=== PATIENT | male | born 1960 | race Caucasian/White ===

== ENCOUNTER 2024-09-27 15:55 | Outpatient (RCR) | payer BC, SELFPAY | END 2024-09-27 23:59 | disposition home or self-care (01) | LOC: RPT 15:55 | PROVIDERS: ATTENDING PHYSICIAN Orthopaedic Surgery; FAMILY PHYSICIAN Family Medicine | DX: Z47.1 Aftercare following joint replacement surgery (principal); Z96.651 Presence of right artificial knee joint; M17.11 Unilateral primary osteoarthritis, right knee; Z73.6 Limitation of activities due to disability | CPT/HCPCS: 97010; 97110; 97112; 97163; 97530 ==

== ENCOUNTER 2024-09-28 16:48 | Emergency (ER) | payer BC, SELFPAY ==
[2024-09-28 16:57] VITALS: BP 146/85
[2024-09-28 17:38] LABS: ALT (SGPT) 37 U/L (0-50); AST (SGOT) 24 U/L (17-59); Albumin 4.6 g/dl (3.5-5.0); Alkaline Phosphatase 52 U/L (38-126); Blood Urea Nitrogen 23 mg/dl (9-20); Calcium 9.6 mg/dl (8.4-10.2); Carbon Dioxide 21 mmol/L (22-30); Chloride 100 mmol/L (98-107); Glucose 124 mg/dl (70-99); Potassium 4.6 mmol/L (3.5-5.1); Sodium 137 mmol/L (135-145); Total Bilirubin 0.4 mg/dl (0.2-1.3); eGFR > 60.00
[2024-09-28 17:59] LABS: % Basophils 0.5 % (0-2); % Eosinophils 4.2 % (0-6); % Immature Granulocytes 0.2 % (0-0.5); % Monocytes 4.1 % (1.7-9.3); Absolute Basophils 0.1 10^3/uL (0-0.2); Absolute Eosinophils 0.7 10^3/uL (0-0.7); Absolute Lymphocytes 10.5 10^3/uL (1.2-3.4); Absolute Monocytes 0.7 10^3/uL (0.1-0.6); Absolute Neutrophils 3.8 10^3/uL (1.4-6.5); Hematocrit 39.1 % (39.0-52.0); Hemoglobin 12.7 g/dL (13.0-18.0); Mean Corp Hgb Conc. 32.5 g/dL (33.0-37.0); Mean Corpuscular Hgb 28.5 pg (27.0-31.0); Mean Corpuscular Volume 87.7 fL (80.0-94.0); Nucleated Red Blood Cells % 0.4 % (-); Platelet Count 188 10^3/uL (130-400); Red Blood Cell Count 4.46 10^6/uL (4.70-6.10); Red Cell Dist. Width 13.4 % (11.5-14.5); White Blood Cell Count 15.7 10^3/uL (4.8-10.8)
[2024-09-28 18:18] VITALS: BMI 26.3
[2024-09-28 18:19] VITALS: BP 129/80
[2024-09-28 20:22] VITALS: BP 128/87
[2024-09-28 20:35] LABS: Erythrocyte Sed Rate 19 mm/hour (0-20)
[2024-09-28 20:37] LABS: COVID-19 Antigen Negative (Negative)
[2024-09-28 20:38] LABS: Lactic Acid 0.8 mmol/L (0.7-2.0)
[2024-09-28 20:52] LABS: C-Reactive Protein < 5.00 mg/L (0.0-10.00)
[2024-09-28 21:49] LABS: Urine Albumin Negative (Neg - Trace); Urine Bilirubin Negative (Negative); Urine Character Clear (Clear); Urine Color Yellow; Urine Glucose Negative (Negative); Urine Ketone Negative (Negative); Urine Leukocyte Negative (Negative); Urine Nitrite Negative (Negative); Urine Occult Blood Trace (Negative); Urine Specific Gravity 1.025 (<1.030); Urine Urobilinogen Negative (Neg - 1+)
[2024-09-28 21:54] LABS: Urine Squamous Cell 0-2 /LPF (Few)
[2024-09-28 21:55] LABS: Urine Mucus Few
[2024-09-28 21:57] LABS: Urine Bacteria Few (Negative); Urine Calcium Oxalate Crystals Present; Urine White Cell 0-2 /HPF (0-5)
--- NOTE | 2024-09-29 00:03 | ED.GENMED ---
History of Present Illness
General
Chief Complaint: Fever
Source: patient
Exam Limitations: none
Time Seen by Provider: 09/28/24 19:20
Nursing documentation reviewed up to this point in time: agreed with
History of Present Illness
History of Present Illness:
Patient to ED wt complaint of intermittent fevers. States he had RTKR approx 3 weeks ago. Surgery was delayed for 5 days to due fevers. Since surgery he continues with intermittent fevers. No other complaint. Brougyht to ED by spouse for
eval. PMH CLL
Past History
Past History
ED Past Medical History: Hypercholesterolemia and Other (CLL)
ED Past Surgical History: None
Social History
Tobacco: Non-smoker
Alcohol: Occasional
Personal:
Living: with family
Employment: Employed
Review of Systems
Review of Systems
Allergies reviewed?: Yes
All Other Systems: ROS reviewed and negative except as documented in HPI and ROS
Constitutional: Reports fever (intermittent)
EENT: Reports no symptoms
Respiratory: Reports no symptoms
Cardiac: Reports no symptoms
ABD/GI: Reports no symptoms
: Reports no symptoms
Musculoskeletal: Reports no symptoms
Skin: Reports no symptoms
Neurological: Reports no symptoms
Psychiatric: Reports no symptoms
Phy Exam
General Physical Exam
General Presentation: well appearing and no apparent distress
General age: appears stated age
General Skin: warm and dry
General Habitus: normal
General Mental: alert
General Hydration: appears well hydrated
ENT Exam
ENT Exam: pharynx normal, neck supple, normocephalic and swallowing well
Cardiovascular Exam
Cardiovascular Exam: regular rate/rhythm and no edema
Pulmonary Exam
Pulmonary Exam: lungs clear and no respiratory distress
Gastrointestinal Exam
Gastrointestinal Exam: non tender and soft
Musculoskeletal Exam
Musculoskeletal Exam: full ROM and neuro vasc intact
Skin Exam
Skin Exam: normal color, warm/dry, no rash and other (incision right ant knee with all skin edges together. No redness, swelling discharge)
Psychiatric Exam
Psychiatric Exam: normal mood/affect
Course
Orders/Labs/Results
Orders:
Orders
09/28/24 17:13
C-Reactive Protein Urgent
Comment: ADD ON
CMP [Comprehensive Metabolic Panel] Urgent
Complete Blood Count/With Diff Urgent
Erythrocyte Sed Rate Urgent
Comment: ADD ON
09/28/24 20:08
Add On- LAB Urgent
Tests Added?: Sed Rate, CRP
09/28/24 20:16
COVID-19 Antigen Urgent
Source: Nasal Swab
Lactic Acid Urgent
Blood Culture Urgent
FARHAT Source: Blood/Venous
Specimen Description:
Influenza A+B Rapid Molecular Urgent
FARHAT Source: Nasal Swab
Specimen Description:
09/28/24 21:03
CR Chest - 2 Views Urgent
Comment:
Reason For Exam: fever
09/28/24 21:41
Urinalysis Reflex To Culture Urgent
Date Specimen was Collected: 09/28/24
Time Specimen was Collected: 21:40
Urine Microscopic Reflex Cult Urgent
Abnormal Lab Results
09/28/24 09/28/24
17:13 21:41
WBC 15.7 H 10^3/uL
(4.8-10.8)
RBC 4.46 L 10^6/uL
(4.70-6.10)
Hgb 12.7 L g/dL
(13.0-18.0)
MCHC 32.5 L g/dL
(33.0-37.0)
Absolute Lymphs (auto) 10.5 H 10^3/uL
(1.2-3.4)
Absolute Monos (auto) 0.7 H 10^3/uL
(0.1-0.6)
Neutrophils % 24.0 L %
(42.2-75.2)
Lymphocytes % 67.0 H %
(20.5-51.1)
Carbon Dioxide 21 L mmol/L
(22-30)
BUN 23 H mg/dl
(9-20)
Glucose 124 H mg/dl
(70-99)
Ur Occult Blood Reflex Trace A
(Negative)
Urine RBC 3-6 A /HPF
(0-2)
Urine Bacteria (Reflex) Few A
(Negative)
09/28/24 17:13
09/28/24 17:13
Vital Signs
Initial and Last Documented VS:
Initial Vital Signs
Temp Pulse Resp BP Pulse Ox
100.3 F 125 16 146/85 95
09/28/24 16:57 09/28/24 16:57 09/28/24 16:57 09/28/24 16:57 09/28/24 16:57
Last Documented Vital Signs
Temp Pulse Resp BP Pulse Ox
99.0 F 89 18 128/87 96
09/28/24 20:34 09/28/24 20:22 09/28/24 20:22 09/28/24 20:22 09/28/24 20:22
MDM/Problems Addressed
Differential Diagnosis Includes:
Patient to ED with complaint of intermittent fevers for the past month. Reports presence of fever delayed RTKR by 5 days. He continues with these fevers. Labs reviewed. Hx of CLL. WBC 15 noted but consistent for him. CXR NAD, UA no evidence of
UTI. Exam without concerning findings. WIll discharge home, close follow up with PCP and hematology. Blood culture results pending
*Critical Care Note
Total Time (30-74mins, 75-104mins- exclusive of procedures): Not Applicable
ED Attending Note
-
Portions of this chart may have been created with voice recognition software.� Occasional wrong word or��sound alike� substitutions may have occurred due to the inherent limitations of voice recognition software.
Discharge Plan
Departure
Patient Disposition: Home (Routine Discharge)
Date of Disposition: 09/28/24
Time of Disposition: 22:05
Patient with high blood pressure during this ER visit?: No
Condition: Good
Covid-19: Not Applicable
Discharge Problem:
Fever, unknown origin
Instructions: Fever, Adult (DC)
Prescriptions:
No Action
ciprofloxacin HCl 500 MG tablet
500 mg PO BID Qty: 19 0RF
Referrals:
Moustapha Balbuena MD [Family Provider] - Follow up in 2-3 days
Activity Restrictions/Additional Instructions:
Return to the emergency department immediately for any changes in/worsening of your symptoms.
Interventions
Interventions:
*Risk Screen - Suicide Last Done: 09/28/24 16:57
*General Assessment Last Done: 09/28/24 16:57
*Neglect/Abuse Screening Last Done: 09/28/24 16:57
*ED COVID-19 Vaccine History Last Done: 09/28/24 16:57
*Nursing Disposition Last Done: 09/28/24 22:24
ED- Neurological Assessment Last Done: 09/28/24 18:22
ED-Skin Assessment Last Done: 09/28/24 18:22
Discharge Date and Time
Discharge Date/Time: 09/28/24 22:25
Print Language: CROATIAN
== END 2024-09-28 22:25 | disposition home or self-care (01) ==
LOC: EMR 16:48
PROVIDERS: Emergency Medicine; Nurse Practitioner; EMERGENCY PHYSICIAN Emergency Medicine; FAMILY PHYSICIAN Family Medicine
DX: R50.9 Fever, unspecified (principal); E78.00 Pure hypercholesterolemia, unspecified
CPT/HCPCS: 99283; 71046; 80053; 81003; 81015; 83605; 85025; 85652; 86140; 87040; 87502; 87811

== ENCOUNTER → 2024-10-13 14:56 | Outpatient (REF) | payer BC, SELFPAY | LOC: HWRAD 14:56 | PROVIDERS: ATTENDING PHYSICIAN Internal Medicine Hematology & Oncology; FAMILY PHYSICIAN Family Medicine | DX: C91.10 Chronic lymphocytic leukemia of B-cell type not having achieved remission (principal); R16.1 Splenomegaly, not elsewhere classified | CPT/HCPCS: 71260; 74177; Q9967 ==

== ENCOUNTER 2024-10-22 10:03 | Outpatient (RCR) | payer BC, SELFPAY | END 2024-10-22 13:46 | disposition home or self-care (01) | LOC: RPT 10:03 | PROVIDERS: ATTENDING PHYSICIAN Orthopaedic Surgery; FAMILY PHYSICIAN Family Medicine | DX: Z47.1 Aftercare following joint replacement surgery (principal); M17.11 Unilateral primary osteoarthritis, right knee; R26.89 Other abnormalities of gait and mobility; Z73.6 Limitation of activities due to disability; Z96.651 Presence of right artificial knee joint | CPT/HCPCS: 97110; 97530 ==

== ENCOUNTER → 2024-11-05 09:15 | Outpatient (REF) | payer BC, SELFPAY ==
[2024-11-05 09:44] VITALS: BP 154/94; BP_SYST 88
[2024-11-05 10:01] LABS: INR 0.96; PT 13.1 Sec (11.4-14.6)
[2024-11-05 10:07] LABS: Hematocrit 43.9 % (39.0-52.0); Hemoglobin 13.6 g/dL (13.0-18.0); Mean Corpuscular Hgb 28.1 pg (27.0-31.0); Mean Corpuscular Volume 90.7 fL (80.0-94.0); Mean Platelet Volume 9.9 fL (7.4-10.4); Platelet Count 158 10^3/uL (130-400); Red Blood Cell Count 4.84 10^6/uL (4.70-6.10)
[2024-11-05] MEDS: TYLENOL 650 MG PO (10:30)
[2024-11-05] MEDS: ATIVAN 0.5 MG IV (10:33)
[2024-11-05] MEDS: NSS (PRESERVATIVE FREE) 0.25 ML IV (10:40)
[2024-11-05 11:15] VITALS: BP 160/95; BP_SYST 95
[2024-11-05 11:20] VITALS: BP 115/89; BP_SYST 68
[2024-11-05 12:27] LABS: % Basophils 0.4 % (0-2); % Eosinophils 1.5 % (0-6); % Immature Granulocytes 0.2 % (0-0.5); % Lymphocytes 63.4 % (20.5-51.1); % Monocytes 5.3 % (1.7-9.3); % Neutrophils 29.2 % (42.2-75.2); Absolute Basophils 0.1 10^3/uL (0-0.2); Absolute Eosinophils 0.2 10^3/uL (0-0.7); Absolute Lymphocytes 7.6 10^3/uL (1.2-3.4); Absolute Monocytes 0.6 10^3/uL (0.1-0.6); Absolute Neutrophils 3.5 10^3/uL (1.4-6.5); Nucleated Red Blood Cells % 0 % (-)
== END ==
LOC: RADI 09:15
PROVIDERS: ATTENDING PHYSICIAN Internal Medicine Hematology & Oncology; FAMILY PHYSICIAN Family Medicine; REFERRING PHYSICIAN Physician Assistant
DX: C91.10 Chronic lymphocytic leukemia of B-cell type not having achieved remission (principal)
CPT/HCPCS: 88305; 88311; 88312; 36415; 38222; 77012; 85025; 85610; 88313

== ENCOUNTER → 2024-11-11 13:09 | Outpatient (REF) | payer BC, SELFPAY | LOC: REG 13:09 | PROVIDERS: ATTENDING PHYSICIAN Student in an Organized Health Care Education/Training Program | DX: R50.9 Fever, unspecified (principal) | CPT/HCPCS: 36415; 87015; 87207 ==

== ENCOUNTER → 2024-11-19 07:09 | Day surgery (SDC) | payer BC, SELFPAY | LOC: CATH 07:09 | PROVIDERS: ATTENDING PHYSICIAN Internal Medicine Cardiovascular Disease; FAMILY PHYSICIAN Family Medicine; OTHER PHYSICIAN Internal Medicine Cardiovascular Disease | DX: R50.9 Fever, unspecified (principal); R00.0 Tachycardia, unspecified; I08.0 Rheumatic disorders of both mitral and aortic valves; I08.8 Other rheumatic multiple valve diseases | CPT/HCPCS: 93312; 93320; 93325; 93005 ==

== ENCOUNTER → 2024-12-08 14:35 | Outpatient (REF) | payer BC, SELFPAY ==
[2024-12-08 16:06] LABS: Blood Urea Nitrogen 23 mg/dl (9-20); Calcium 9.6 mg/dl (8.4-10.2); Carbon Dioxide 32 mmol/L (22-30); Chloride 100 mmol/L (98-107); Glucose 101 mg/dl (70-99); Potassium 4.4 mmol/L (3.5-5.1); Sodium 139 mmol/L (135-145); eGFR > 60.00
[2024-12-08 16:07] LABS: Erythrocyte Sed Rate 14 mm/hour (0-20)
== END ==
LOC: REG 14:35
PROVIDERS: ATTENDING PHYSICIAN Internal Medicine Hematology & Oncology
DX: C91.10 Chronic lymphocytic leukemia of B-cell type not having achieved remission (principal); R16.1 Splenomegaly, not elsewhere classified
CPT/HCPCS: 36415; 80048; 85652

== ENCOUNTER → 2024-12-10 11:20 | Outpatient (REF) | payer BC, SELFPAY ==
[2024-12-10 13:04] LABS: ALT (SGPT) 25 U/L (0-50); AST (SGOT) 25 U/L (17-59); Albumin 4.6 g/dl (3.5-5.0); Alkaline Phosphatase 68 U/L (38-126); Blood Urea Nitrogen 21 mg/dl (9-20); Calcium 9.4 mg/dl (8.4-10.2); Carbon Dioxide 29 mmol/L (22-30); Chloride 102 mmol/L (98-107); Creatine Phosphokinase 56 U/L (55-170); Glucose 86 mg/dl (70-99); Potassium 4.5 mmol/L (3.5-5.1); Sodium 140 mmol/L (135-145); Total Bilirubin 0.4 mg/dl (0.2-1.3); Total Protein 7.1 g/dl (6.3-8.2); eGFR > 60.00
[2024-12-10 13:37] LABS: Hepatitis B Core Ab, Total Negative (Negative); Hepatitis B Surface Antibody Negative; Hepatitis C Antibody Negative (Negative)
[2024-12-10 13:44] LABS: Urine Albumin Trace (Neg - Trace); Urine Bilirubin Negative (Negative); Urine Character Clear (Clear); Urine Color Yellow; Urine Glucose Negative (Negative); Urine Ketone Negative (Negative); Urine Leukocyte Negative (Negative); Urine Nitrite Negative (Negative); Urine Occult Blood Negative (Negative); Urine Urobilinogen Negative (Neg - 1+)
[2024-12-10 14:35] LABS: Urine Protein < 5 mg/dl
[2024-12-11 10:20] LABS: Intact PTH 33.9 pg/ml (13.6-85.8)
[2024-12-11 20:53] LABS: EBV-EA (D) Ab IgG <5.0 U/mL (0.0-10.9); EBV-VCA IgM Antibodies <10.0 U/mL (0.0-43.9)
[2024-12-11 23:33] LABS: Myeloperoxidase Antibody 0 AU/mL (0-19); Serine Protease-3, IgG 0 AU/mL (0-19)
[2024-12-12 07:50] LABS: Cardiolipin IgA Antibody <10 APL (<=11); Cardiolipin IgM Antibody <10 MPL (<=12); Cardiolipin Igg Antibody <10 GPL (<=14)
[2024-12-13 02:56] LABS: Beta-2-Glycoprotein I Ab. IgG <10 SGU (<=20); Beta-2-Glycoprotein I Ab. IgM <10 SMU (<=20)
[2024-12-13 05:08] LABS: Complement C3 138 mg/dl (88-165)
[2024-12-13 09:15] LABS: Parvo B19 Ab, IgM 0.11 IV (<=0.89); Parvo Virus B19 Ab, IgG 1.16 IV (<=0.90)
== END ==
LOC: REG 11:20
PROVIDERS: ATTENDING PHYSICIAN Student in an Organized Health Care Education/Training Program
DX: R50.9 Fever, unspecified (principal); R51.9 Headache, unspecified
CPT/HCPCS: 36415; 80053; 81003; 82232; 82550; 82570; 82595; 82784; 83516; 83521; 83970; 84155; 84156; 84165; 85610; 85613; 85730; 86146; 86147; 86160; 86334; 86663; 86664; 86665; 86704; 86706; 86747; 86803

== ENCOUNTER → 2024-12-20 13:34 | Outpatient (REF) | payer BC, SELFPAY | LOC: RAD 13:34 | PROVIDERS: ATTENDING PHYSICIAN Internal Medicine Hematology & Oncology; FAMILY PHYSICIAN Family Medicine | DX: C91.10 Chronic lymphocytic leukemia of B-cell type not having achieved remission (principal) | CPT/HCPCS: 70491; Q9967 ==

== ENCOUNTER → 2024-12-28 18:59 | Outpatient (REF) | payer BC, SELFPAY | LOC: MRI 3T 18:59 | PROVIDERS: ATTENDING PHYSICIAN Internal Medicine Hematology & Oncology; FAMILY PHYSICIAN Family Medicine | DX: C91.10 Chronic lymphocytic leukemia of B-cell type not having achieved remission (principal); R16.1 Splenomegaly, not elsewhere classified; R50.9 Fever, unspecified; R51.9 Headache, unspecified | CPT/HCPCS: 70546; 70553 ==

== ENCOUNTER → 2025-05-04 13:00 | Outpatient (REF) | payer BC, SELFPAY | LOC: RAD 13:00 | PROVIDERS: ATTENDING PHYSICIAN Family Medicine | DX: C91.10 Chronic lymphocytic leukemia of B-cell type not having achieved remission (principal); E78.2 Mixed hyperlipidemia; R05.1 Acute cough; R35.0 Frequency of micturition; N40.1 Benign prostatic hyperplasia with lower urinary tract symptoms; N13.8 Other obstructive and reflux uropathy | CPT/HCPCS: 71046 ==

== ENCOUNTER 2025-08-16 06:23 | Day surgery (SDC) | payer BC, SELFPAY | END 2025-08-16 09:30 | disposition home or self-care (01) | LOC: GI 06:23 | PROVIDERS: ATTENDING PHYSICIAN Student in an Organized Health Care Education/Training Program | DX: Z12.11 Encounter for screening for malignant neoplasm of colon (principal); K57.30 Diverticulosis of large intestine without perforation or abscess without bleeding; D12.4 Benign neoplasm of descending colon; K63.5 Polyp of colon; K62.1 Rectal polyp; Z86.0101 Personal history of adenomatous and serrated colon polyps | CPT/HCPCS: 45385; 45380; 88305 ==